=== PATIENT | female | born 1975 | race Caucasian/White ===

== ENCOUNTER 2020-12-25 06:00 | Outpatient (RCR) | payer OTHER, SELFPAY | END 2021-01-15 23:59 | disposition home or self-care (01) | LOC: TPT 06:00 | PROVIDERS: PCP Nurse Practitioner; Referring Provider Nurse Practitioner Family; Visit Provider Nurse Practitioner Family | DX: Z98.890 Other specified postprocedural states (principal) | CPT/HCPCS: 97110; 97140; 97162 ==

== ENCOUNTER 2021-01-16 06:00 | Outpatient (RCR) | payer OTHER, SELFPAY | END 2021-02-15 23:59 | disposition home or self-care (01) | LOC: TPT 06:00 | PROVIDERS: PCP Nurse Practitioner; Referring Provider Nurse Practitioner Family; Visit Provider Nurse Practitioner Family | DX: M25.511 Pain in right shoulder (principal) | CPT/HCPCS: 97110; 97140; 97164 ==

== ENCOUNTER 2021-02-16 06:00 | Outpatient (RCR) | payer OTHER, SELFPAY | END 2021-03-17 23:59 | disposition home or self-care (01) | LOC: TPT 06:00 | PROVIDERS: PCP Nurse Practitioner; Referring Provider Nurse Practitioner Family; Visit Provider Nurse Practitioner Family | DX: Z98.890 Other specified postprocedural states (principal) | CPT/HCPCS: 97110; 97140; 97164 ==

== ENCOUNTER 2021-03-18 06:00 | Outpatient (RCR) | payer OTHER, SELFPAY | END 2021-04-14 23:59 | disposition home or self-care (01) | LOC: TPT 06:00 | PROVIDERS: PCP Nurse Practitioner; Visit Provider Nurse Practitioner Family | DX: Z98.890 Other specified postprocedural states (principal); M25.511 Pain in right shoulder | CPT/HCPCS: 97110 ==